=== PATIENT | male | born 1935 | race American Indian/Alaskan Native ===

== ENCOUNTER 2021-03-20 02:32 | Emergency (ER) | payer MEDICARE ==
[2021-03-20] MEDS ORDERED: ACETAMINOPHEN 325 MG TAB PO ONE (03:13)
--- NOTE | 2021-03-20 03:17 | Emergency Department Report ---
ED Fall HPI - General Chief Complaint: Fall Stated Complaint: FALL/HEAD AND NECK PAIN Time Seen by Provider: 03/20/21 02:55 Source: patient, EMS Mode of arrival: Stretcher - History of Present Illness Initial Comments: Patient is an 85-year-old male who presents to the emergency department with complaint of fall. Patient states that he was in his bathroom when he had a ground-level fall. He stepped wrong slipped and hit his head on the toilet. He denies loss of consciousness. He states he did hit his pelvis. He complains of some mild neck pain. - Related Data Allergies Allergy/AdvReac Type Severity Reaction Status Date / Time No Known Allergies Allergy Verified 03/20/21 05:35 ED Review of Systems ROS: Stated complaint: FALL/HEAD AND NECK PAIN Other details as noted in HPI Constitutional: denies: chills, fever Eyes: denies: eye pain ENT: denies: dental pain Respiratory: denies: shortness of breath Cardiovascular: denies: edema Endocrine: denies: excessive sweating Gastrointestinal: denies: nausea, vomiting Genitourinary: denies: dysuria Musculoskeletal: denies: joint swelling Skin: denies: rash Neurological: denies: numbness Psychiatric: denies: anxiety Hematological/Lymphatic: denies: easy bleeding ED Past Medical Hx - Past Medical History Hx Hypertension: Yes Hx Congestive Heart Failure: Yes Additional medical history: Afib - Surgical History Additional Surgical History: knee surgeries - Social History Smoking Status: Never Smoker ED Physical Exam - General Limitations: No Limitations General appearance: alert, in no apparent distress - Head Head exam: Present: atraumatic, normocephalic - Eye Eye exam: Present: normal appearance Pupils: Present: normal accommodation - ENT ENT exam: Present: normal exam - Neck Neck exam: Present: tenderness (To the midline) - Respiratory Respiratory exam: Present: normal lung sounds bilaterally. Absent: respiratory distress - Cardiovascular Cardiovascular Exam: Present: regular rate, normal rhythm, normal heart sounds - GI/Abdominal GI/Abdominal exam: Present: soft. Absent: distended, tenderness - Rectal Rectal exam: Present: deferred - Extremities Exam Extremities exam: Present: normal inspection - Back Exam Back exam: Present: normal inspection - Neurological Exam Neurological exam: Present: alert, oriented X3 - Psychiatric Psychiatric exam: Present: normal affect, normal mood - Skin Skin exam: Present: warm, dry, intact ED Course Vital Signs 03/20/21 03/20/21 03/20/21 02:40 02:56 06:19 Temperature 98.8 F Pulse Rate 92 H 89 Respiratory 18 18 Rate Blood Pressure 187/84 Blood Pressure 177/85 [Left] O2 Sat by Pulse 100 98 98 Oximetry - Reevaluation(s) Reevaluation #1: 03/20/21 04:45 Improved. Imaging is negative. Plan for patient to ambulate and be discharged. Reevaluation #2: 03/20/21 0500 Patient complained of worsening headache prior to discharge. His CT head was negative. I offered additional monitoring to the patient however patient states that he was ready to go and would like some ibuprofen. Patient is not on blood thinners so we will give a dose of ibuprofen but he is instructed to return to the emergency department if any of his symptoms worsen including worsening headache acting abnormally or any motor or sensory weakness. ED Medical Decision Making - Medical Decision Making 85-year-old male who presents to emergency department after a ground-level fall in his bathroom. He did hit his head but had no loss of consciousness. He also states he hit his pelvis. He has some mild neck pain and tenderness to the midline on my exam. Plan to evaluate with CT brain and C-spine, chest and pelvis x-rays and to give patient a dose of Tylenol. He is hypertensive but has a history of high blood pressure. Will reevaluate after imaging. Critical care attestation.: If time is entered above; I have spent that time in minutes in the direct care of this critically ill patient, excluding procedure time. ED Disposition Clinical Impression: Fall, Cervical strain, acute Disposition: DC-01 TO HOME OR SELFCARE Is pt being admited?: No Does the pt Need Aspirin: No Condition: Stable Instructions: Cervical Strain and Sprain Rehab[facility] Referrals: JOHN MONTIEL MD [Staff Physician] - 3-5 Days Time of Disposition: 04:46
--- NOTE | 2021-03-20 04:20 | XRay Report ---
XR chest 1V ap INDICATION / CLINICAL INFORMATION: glf COMPARISON: None available. FINDINGS: SUPPORT DEVICES: None. HEART / MEDIASTINUM: No significant abnormality. LUNGS / PLEURA: Lungs are clear. Costophrenic sulci are sharp. No pneumothorax. ADDITIONAL FINDINGS: No acute fracture identified. No significant additional findings. IMPRESSION: 1. No acute findings. Signer Name: Aly Gayle MD Signed: 03/20/2021 4:16 AM Workstation Name: [id number]
--- NOTE | 2021-03-20 04:20 | XRay Report ---
XR pelvis 1-2V INDICATION / CLINICAL INFORMATION: glf. COMPARISON: None available. FINDINGS: No acute fracture. Normal alignment. Joint spaces are preserved. No destructive osseous lesion or s uspicious periosteal reaction. Impression: 1.No acute fracture. Signer Name: Aly Gayle MD Signed: 03/20/2021 4:16 AM Workstation Name: [id number]
--- NOTE | 2021-03-20 04:23 | Cat Scan Report ---
CT cervical spine wo con INDICATION: glf; neck pain. TECHNIQUE: Axial CT images of the cervical spine were obtained. Sagittal and coronal reformatted images were pro duced. All CT scans at this location are performed using CT dose reduction for ALARA by means of auto mated exposure control. COMPARISON: None available. FINDINGS: ALIGNMENT: Normal alignment. VERTEBRAE: Diffuse idiopathic skeletal hyperostosis. No fracture. Vertebral body heights are preserve d. C1 and C2 are congruent. SPONDYLOSIS: Moderate multilevel spondylosis. No high-grade osseous spinal canal stenosis. Multilevel foraminal narrowing.. SOFT TISSUES: No significant soft tissue abnormality. ADDITIONAL FINDINGS: No significant additional findings. IMPRESSION: 1. No fracture of the cervical spine. Signer Name: Aly Gayle MD Signed: 03/20/2021 4:19 AM Workstation Name: [id number]
--- NOTE | 2021-03-20 04:23 | Cat Scan Report ---
CT head/brain wo con INDICATION: glf; hit head. TECHNIQUE: Routine CT head. All CT scans at this location are performed using CT dose reduction for A NADIRA by means of automated exposure control. COMPARISON: None. FINDINGS: Intracranial: De Guzman-white matter differentiation is maintained. No intracranial hemorrhage. No extra a xial collection. No hydrocephalus. No herniation. Sinuses: Paranasal sinuses and mastoid air cells are essentially clear. Orbits: Globes are intact. Calvarium: No acute fracture. IMPRESSION: 1. No acute intracranial abnormality. Signer Name: Aly Gayle MD Signed: 03/20/2021 4:19 AM Workstation Name: [id number]
[2021-03-20] MEDS ORDERED: IBUPROFEN 400 MG TAB PO ONE (05:24)
[2021-03-20 06:20] VITALS: BP 177/85
== END 2021-03-20 06:19 | disposition home or self-care (01) ==
LOC: ED 02:32
DX: S16.1XXA Strain of muscle, fascia and tendon at neck level, initial encounter (principal); W18.39XA Other fall on same level, initial encounter; Y93.E1 Activity, personal bathing and showering; Y92.091 Bathroom in other non-institutional residence as the place of occurrence of the external cause; Y99.8 Other external cause status; R10.819 Abdominal tenderness, unspecified site; I10 Essential (primary) hypertension; I50.9 Heart failure, unspecified; M54.2 Cervicalgia
CPT/HCPCS: 70450; 71045; 72125; 72170; 99284